=== PATIENT | male | born 1960 | race Caucasian/White ===

== ENCOUNTER 2020-09-20 10:10 | Emergency (ER) | payer SELFPAY ==
[~2020-09-20] VITALS: Ht 177.8 cm; Wt 61.7 kg
[2020-09-20] MEDS ORDERED: CEPHALEXIN500 MG PO (11:08)
[2020-09-20] MEDS ORDERED: MOTRIN200 MG PO (11:08)
== END 2020-09-20 11:16 | disposition home or self-care (01) ==
LOC: ER 10:23
DX: S90.121A Contusion of right lesser toe(s) without damage to nail, initial encounter (principal); W22.09XA Striking against other stationary object, initial encounter; Y93.E1 Activity, personal bathing and showering; Y92.002 Bathroom of unspecified non-institutional (private) residence as the place of occurrence of the external cause
CPT/HCPCS: 99283

== ENCOUNTER 2020-09-25 13:14 | Emergency (ER) | payer OTHER ==
[~2020-09-25] VITALS: Ht 177.8 cm; Wt 61.7 kg
[~2020-09-25 13:14] MED LIST: CEPHALEXIN500 MG PO; MOTRIN200 MG PO
== END 2020-09-25 13:43 | disposition home or self-care (01) ==
LOC: ER 13:22
DX: M79.674 Pain in right toe(s) (principal); S90.121A Contusion of right lesser toe(s) without damage to nail, initial encounter; W22.09XA Striking against other stationary object, initial encounter; F17.210 Nicotine dependence, cigarettes, uncomplicated
CPT/HCPCS: 99282